=== PATIENT | male | born 1955 | race Caucasian/White ===

== ENCOUNTER 2018-08-12 10:35 | Outpatient (REF) | payer OTHER, MEDICAID, SELFPAY ==
[2018-08-13 19:14] LABS: COMMENT (LAB VIEW ONLY) 136.58 mg/dL; Microalb ug/mg Crea 9.5 ug/mg Cr
== END 2018-08-12 10:55 ==
LOC: NCHCN 10:35
PROVIDERS: PCP Neuromusculoskeletal Medicine & OMM; Visit Provider Physician Assistant Medical
DX: E11.65 Type 2 diabetes mellitus with hyperglycemia (principal)
CPT/HCPCS: 82043; 82570

== ENCOUNTER 2021-06-12 10:57 | Outpatient (REF) | payer OTHER, MEDICAID, SELFPAY ==
[2021-06-12 20:18] LABS: Anion Gap 8.1 mmol/L (3-11); BUN 26 mg/dL (7-18); CO2 28.9 mmol/L (21.0-32.0); Calcium 8.9 mg/dL (8.5-10.1); Chloride 104 mmol/L (98-107); Glucose 340 mg/dL (74-106); Potassium 4.7 mmol/L (3.5-5.1); Sodium 141 mmol/L (136-145)
[2021-06-12 20:29] LABS: COMMENT (LAB VIEW ONLY) 87.32 mg/dL; Microalb ug/mg Crea 28.3 ug/mg Cr
== END 2021-06-12 10:58 | disposition home or self-care (01) ==
LOC: NCHCN 10:57
PROVIDERS: PCP Neuromusculoskeletal Medicine & OMM; Visit Provider Physician Assistant
DX: E11.65 Type 2 diabetes mellitus with hyperglycemia (principal)
CPT/HCPCS: 80048; 82043; 82570

== ENCOUNTER 2022-11-09 11:30 | Outpatient (REF) | payer MEDICARE, SELFPAY ==
[2022-11-09 19:16] LABS: ALT 24 U/L (16-63); AST 14 U/L (15-37); Albumin 3.9 g/dL (3.4-5.0); Alkaline Phosphatase 83 U/L (46-116); Anion Gap 9.8 mmol/L (3-11); BUN 26 mg/dL (7-18); Bilirubin, Total 0.6 mg/dL (0.2-1.0); CO2 26.2 mmol/L (21.0-32.0); CREATININE 1.1 mg/dL (0.70-1.30); Chloride 107 mmol/L (98-107); Estimated GFR 72.67 (mL/min/1.73m2); Glucose 177 mg/dL (74-106); Potassium 4.2 mmol/L (3.5-5.1); Sodium 143 mmol/L (136-145); Total Protein 7.3 g/dL (6.4-8.2)
[2022-11-09 19:44] LABS: COMMENT (LAB VIEW ONLY) 120.52 mg/dL
== END 2022-11-09 11:31 | disposition home or self-care (01) ==
LOC: NCHCN 11:30
PROVIDERS: PCP Neuromusculoskeletal Medicine & OMM; Visit Provider Physician Assistant
DX: E11.65 Type 2 diabetes mellitus with hyperglycemia (principal)
CPT/HCPCS: 80053; 82043; 82570

== ENCOUNTER 2022-12-20 02:11 | Outpatient (CLI) | payer MEDICARE, SELFPAY ==
--- NOTE | 2022-12-20 | DI.US_ITS ---
Exam(s) US CAROTID EXAM: US CAROTID CLINICAL HISTORY: DIZZINESS R42 DIABETES E11.65 HYPERLIPIDEMIA E78.5 HYPERTENSION I10. TECHNIQUE: Ultrasound carotids performed using grayscale, color-flow, and spectral Doppler imaging. COMPARISON: No exams were available for comparison FINDINGS: RIGHT CAROTID ARTERY: Plaque: Mild calcific plaque is seen in the common carotid artery, carotid bulb, and proximal ECA and ICA. Velocity elevation: None. LEFT CAROTID ARTERY: Plaque: There is mild calcific plaque seen in the common carotid artery, carotid bulb and proximal IC A. Velocity elevation: None. VERTEBRAL ARTERIES: Antegrade flow. Measurements: R Bulb: 39.4cm/s PS / 9.3cm/s ED R CCA: 85.4cm/s PS / 16.7cm/s ED R ECA: 192.9cm/s PS / 13.2cm/s ED R ICA Prox: 72cm/s PS / 17.4cm/s ED R ICA Mid: 62cm/s PS / 19.5cm/s ED R ICA Distal: 69.7cm/s PS /23.1cm/s ED R Vert: 103.2cm/s PS / 7.1cm/s ED R SVR: 0.8 R DVR: 1 L Bulb: 51.3cm/s PS / 11.9cm/s ED L CCA: 56.2cm/s PS / 12.1cm/s ED L ECA: 123.9cm/s PS / 10.8cm/s ED L ICA Prox: 49cm/s PS / 17.7cm/s ED L ICA Mid: 46.1cm/s PS / 17.4cm/s ED L ICA Distal: 57.1cm/s PS / 22.4cm/s ED L Vert: 53.6cm/s PS / 18.1cm/s ED L SVR: 1 L DVR: 1.8 IMPRESSION: No evidence for hemodynamically significant carotid stenosis. Criteria for Carotid Stenosis: Normal: ICA PSV <125 cm/s no plaque or intimal thickening is visible. <50% stenosis: ICA PSV <125 cm/s and plaque or intimal thickening is visible. 50-69% stenosis: ICA PSV is 125-250 cm/s and plaque is visible. >70% stenosis to near occlusion: ICA PSV >250 cm/s with visible plaque and luminal narrowing. DATA REPOSITORY:
== END 2022-12-20 02:31 ==
LOC: DI 02:11
PROVIDERS: PCP Neuromusculoskeletal Medicine & OMM; Visit Provider Physician Assistant
DX: R42 Dizziness and giddiness (principal); E11.65 Type 2 diabetes mellitus with hyperglycemia; E78.5 Hyperlipidemia, unspecified; I10 Essential (primary) hypertension
CPT/HCPCS: 93880

== ENCOUNTER 2023-08-07 15:17 | Outpatient (REF) | payer MEDICARE, SELFPAY ==
[2023-08-07 20:44] LABS: Hemoglobin A1C 8.9 % (<5.7)
== END 2023-08-07 15:18 | disposition home or self-care (01) ==
LOC: NCHCN 15:17
PROVIDERS: PCP Physician Assistant; Visit Provider Physician Assistant
DX: E11.65 Type 2 diabetes mellitus with hyperglycemia (principal)
CPT/HCPCS: 83036

== ENCOUNTER 2023-11-15 14:49 | Outpatient (REF) | payer MEDICARE, SELFPAY ==
[2023-11-15 19:03] LABS: Abs Immature Grans 0.01 10^3/uL (0.0-0.06); Absolute Basophil Count 0.04 10^3/uL (0.0-0.2); Absolute Eosinophil Count 0.08 10^3/uL (0.0-0.7); Absolute Lymphocyte Count 1.31 10^3/uL (1.2-3.4); Absolute Monocyte Count 0.44 10^3/uL (0.1-0.8); Absolute Neutrophil Count 4.01 10^3/uL (1.2-6.7); Basophils % 0.7 %; Eosinophils % 1.4 %; HGB 13.4 g/dL (13.5-17.5); Immature Grans % 0.2 %; Lymphocytes % 22.2 %; MCH 29.8 pg (27.0-33.0); MCHC 33.5 % (32.0-36.0); MCV 89 fL (80-95); MPV 12.1 fL (8.0-11.0); Monocytes % 7.5 %; Platelet Count 172 10^3/uL (130-400); RBC 4.49 10^6/uL (4.36-5.78); RDW 13.1 % (11.8-14.1); RDW-SD 42.5 fL; WBC 5.89 10^3/uL (4.4-10.8)
[2023-11-15 19:27] LABS: ALT 22 U/L (16-63); AST 18 U/L (15-37); Albumin 3.8 g/dL (3.4-5.0); Alkaline Phosphatase 83 U/L (46-116); Anion Gap 10.7 mmol/L (3-11); BUN 24 mg/dL (7-18); Bilirubin, Total 0.8 mg/dL (0.2-1.0); CO2 28.3 mmol/L (21.0-32.0); CREATININE 1.1 mg/dL (0.70-1.30); Calcium 8.8 mg/dL (8.5-10.1); Calculated LDL 204 mg/dL (<100); Chloride 106 mmol/L (98-107); Cholesterol 279 mg/dL (<200); Estimated GFR 72.22 (mL/min/1.73m2); Glucose 133 mg/dL (74-106); HDL Cholesterol 56 mg/dL (40-60); Potassium 4.5 mmol/L (3.5-5.1); Sodium 145 mmol/L (136-145); Total Protein 6.8 g/dL (6.4-8.2); Triglyceride 95 mg/dL (<150)
== END 2023-11-15 14:50 | disposition home or self-care (01) ==
LOC: NCHCN 14:49
PROVIDERS: PCP Physician Assistant; Visit Provider Physician Assistant
DX: E11.65 Type 2 diabetes mellitus with hyperglycemia (principal)
CPT/HCPCS: 80053; 80061; 85025